=== PATIENT | female | born 1985 | race Caucasian/White ===

== ENCOUNTER 2020-10-17 12:30 | Outpatient (CLI) | payer OTHER, SELFPAY ==
--- NOTE | ~2020-10-17 | US_ITS ---
EXAMINATION: US OB <=14 wk fetus w TV EXAM DATE: 10/17/2020 13:11 INDICATION: Z32.00 - Encounter for test, result unknown DATES > SIZE. 1st trimester. TECHNIQUE: Pelvic obstetrical transabdominal sonogram was performed by a technologist. There are mu ltiple grayscale and Doppler images available for interpretation. There are no earlier studies of th is gestation for comparison. FINDINGS: Uterus measures 9.5 x 6.8 x 4.3 cm. There is intrauterine gestation sac identified with yol k sac and a pole measuring 5 mm in length corresponding to estimated age 6 weeks 1 day. However , no heart tones are identified at this time. No definite subchorionic hemorrhage identified. T he ovaries are morphologically normal. IMPRESSION: Intrauterine gestation sac, 5 mm pole without heart tones confirmed at this time. C annot confirm or exclude viable gestation. Consider 1 week follow-up pelvic sonogram. Reviewed, dictated and finalized at location B. HOOKER HAND IMPRESSION: Intrauterine gestation sac, 5 mm pole without heart tones con firmed at this time. Cannot confirm or exclude viable gestation. Consider 1 wee k follow-up pelvic sonogram.
== END 2020-10-17 12:31 | disposition home or self-care (01) ==
LOC: ANHIMG 12:36
PROVIDERS: PCP Internal Medicine; Visit Provider Student in an Organized Health Care Education/Training Program
DX: Z32.00 Encounter for pregnancy test, result unknown (principal); Z3A.00 Weeks of gestation of pregnancy not specified
CPT/HCPCS: 76801; 76817

== ENCOUNTER 2020-10-24 12:47 | Outpatient (CLI) | payer OTHER, SELFPAY ==
--- NOTE | ~2020-10-24 | US_ITS ---
EXAMINATION: US OB <=14 wk fetus w TV DATE: 10/24/2020 11:16 INDICATION: Maternal carrier for abnormality of heart rate or rhythm. First trimester. TECHNIQUE: Real-time transabdominal and transvaginal pelvic ultrasound was performed. COMPARISON: Ultrasound 10/17/2020 FINDINGS: TRANSABDOMINAL ULTRASOUND: The uterus measures 7.5 x 4.3 x 6.8 cm. TRANSVAGINAL ULTRASOUND: There is an intrauterine gestational sac. A yolk sac is identified. The fet al crown rump length measures 4 mm, which correlates with an estimated gestational age of 6 weeks and 0 day(s) (+/-) 4 day(s). heart motion is not identified by M-mode Doppler, which may be normal at this size. The right ovary measures 2.5 x 1.6 x 1.8 cm. The left ovary measures 3.3 x 1.6 x 2.8 c m. There is no free fluid in the pelvis. IMPRESSION: 1. Intrauterine gestation without increase in size from 10/17/20, which is not reassuring. Serial be ta-hCGs are recommended. Reviewed, dictated and finalized at location A. ING OPERATOR IMPRESSION: 1. Intrauterine gestation without increase in size from 10/17/20, which is not reassuring. Serial beta-hCGs are recommended.
[2020-10-24 13:44] LABS: Hematocrit 38.9 % (37.0-47.0); Hemoglobin 13.6 g/dL (12.0-15.0); Mean Corpuscular Hemoglobin 30.8 pg (26-34); Mean Corpuscular Volume 88.2 fl (80-100); Mean Platelet Volume 12.5 fl (7.4-10.4); Platelet Count Result 230 k/mm3 (150-375); Red Blood Count 4.41 M/mm3 (4.2-5.4); Red Cell Distribution Width 11.4 % (11.5-14.5); White Blood Count 6.8 K/mm3 (4.5-10.0)
== END 2020-10-24 12:48 | disposition home or self-care (01) ==
PROVIDERS: PCP Internal Medicine; Visit Provider Student in an Organized Health Care Education/Training Program
DX: O36.8390 Maternal care for abnormalities of the fetal heart rate or rhythm, unspecified trimester, not applicable or unspecified (principal); O02.1 Missed abortion; Z3A.00 Weeks of gestation of pregnancy not specified
CPT/HCPCS: 36415; 76801; 76817; 84702; 85027; 86900; 86901

== ENCOUNTER 2020-11-21 08:57 | Outpatient (CLI) | payer OTHER, SELFPAY | END 2020-11-21 08:58 | disposition home or self-care (01) | PROVIDERS: PCP Internal Medicine; Visit Provider Student in an Organized Health Care Education/Training Program | DX: O02.1 Missed abortion (principal); Z3A.00 Weeks of gestation of pregnancy not specified | CPT/HCPCS: 36415; 84702 ==

== ENCOUNTER 2020-12-14 15:30 | Outpatient (CLI) | payer OTHER, SELFPAY ==
[2020-12-14 16:23] LABS: Beta HCG Quantitative 303.29 mIU/ML
== END 2020-12-14 15:31 | disposition home or self-care (01) ==
LOC: ANHLAB 15:31
PROVIDERS: PCP Internal Medicine; Visit Provider Obstetrics & Gynecology
DX: O02.1 Missed abortion (principal); Z3A.00 Weeks of gestation of pregnancy not specified
CPT/HCPCS: 36415; 84702

== ENCOUNTER 2021-01-12 14:42 | Outpatient (CLI) | payer OTHER, SELFPAY ==
[2021-01-12 15:33] LABS: Beta HCG Quantitative 117.37 mIU/ML
== END 2021-01-12 14:43 | disposition home or self-care (01) ==
PROVIDERS: PCP Internal Medicine; Visit Provider Student in an Organized Health Care Education/Training Program
DX: O02.1 Missed abortion (principal); Z3A.00 Weeks of gestation of pregnancy not specified
CPT/HCPCS: 36415; 84702

== ENCOUNTER 2021-01-30 16:32 | Outpatient (CLI) | payer OTHER, SELFPAY ==
[2021-01-30 17:19] LABS: Beta HCG Quantitative 27.53 mIU/ML
== END 2021-01-30 16:33 | disposition home or self-care (01) ==
LOC: ANHLAB 16:35
PROVIDERS: PCP Internal Medicine; Visit Provider Student in an Organized Health Care Education/Training Program
DX: O02.1 Missed abortion (principal)
CPT/HCPCS: 36415; 84702

== ENCOUNTER 2021-01-30 16:52 | Emergency (ER) | payer OTHER, SELFPAY ==
[2021-01-30 17:05] VITALS: BP 111/76; PULSE 81; RESP 16; TEMP 36.1; O2SAT 100
--- NOTE | 2021-01-30 18:18 | ED.GENADULT ---
HPI - General Adult General Chief complaint: Vaginal Bleeding Stated complaint: vag bleeding, cramping Time Seen by Provider: 01/30/21 18:03 Source: patient Mode of arrival: ambulatory Limitations: no limitations History of Present Illness HPI narrative: Patient is a 35-year-old female who presents to emergency department for evaluation of pelvic pain past a large piece of tissue in the bathroom in the waiting room and upon coming to the ER room notes that her symptoms have completely resolved after passing the tissue. Patient notes that she had a miscarriage at the end of October. Patient is followed by Dr. Mccray. Patient has not had a recent ultrasound since her miscarriage was diagnosed. Patient notes she has been having intermittent bleeding since. Pain intensified today and resolved after passing the tissue. Patient is G1, P0 Related Data Allergies Allergy/AdvReac Type Severity Reaction Status Date / Time No Known Allergies Allergy Mild Verified 01/30/21 19:12 Review of Systems Review of Systems: All systems reviewed & are unremarkable except as noted in HPI and below PMFSH Social History Social History Gender identity (if verbalized by the patient): Female Exam Narrative: Exam Narrative: GENERAL: Well-appearing, well-nourished, and in no acute distress. HEAD: Normocephalic, atraumatic. EYES: PERRLA and EOMI. ENT: Nares clear, no rhinorrhea or epistaxis. Mucous membranes moist. CHEST: Clear to auscultation. No respiratory distress. No wheezes rales or rhonchi HEART: Regular rate and rhythm. No murmur heard. Normal peripheral pulses. ABDOMEN: Soft, nontender, nondistended EXTREMITIES: Normal range of motion. No edema. SKIN: Warm, dry, no rash. NEURO: No focal deficits. Alert and oriented x3. Cranial nerves II through XII grossly intact PSYCH: Normal mood and affect. Course Consultations Consultation #1: Discussed case with patient information coordinator on-call Dr. Grier return call for her colleague would like her to have CBC serum quant and blood type and if the pain is well controlled and patient is hemodynamically stable she can follow in clinic to be seen by her patient information coordinator tomorrow. Would also like the tissue to be sent off for lab to analyze Date: 01/30/21 Time: 18:30 Vital Signs Vital signs: Vital Signs Temperature 97.0 F L 03/09/21 17:05 Pulse Rate 81 01/30/21 17:05 Respiratory Rate 16 01/30/21 17:05 Blood Pressure 111/76 01/30/21 17:05 Pulse Oximetry 100 01/30/21 17:05 Temperature 97.0 F L 01/30/21 17:05 Pulse Rate 84 01/30/21 19:43 Respiratory Rate 18 01/30/21 19:43 Blood Pressure 112/75 01/30/21 19:43 Pulse Oximetry 100 01/30/21 19:43 Medical Decision Making MDM Narrative Medical decision making narrative: Patient in the room no distress will be discharged home patient states she had blood typing a did not require RhoGam when she initially was miscarrying and bleeding patient with stable vital signs hemodynamically stable ABCs and vital signs intact and stable felt appropriate for discharge home patient agrees to follow-up as instructed with her patient information coordinator tomorrow and feels comfortable with this plan bleeding is well controlled. tissue was sent to lab for analysis Vital Signs Vital Signs: Vital Signs Temperature 97.0 F L 01/30/21 17:05 Pulse Rate 81 01/30/21 17:05 Respiratory Rate 16 01/30/21 17:05 Blood Pressure 111/76 01/30/21 17:05 Pulse Oximetry 100 01/30/21 17:05 Temperature 97.0 F L 01/30/21 17:05 Pulse Rate 84 01/30/21 19:43 Respiratory Rate 18 01/30/21 19:43 Blood Pressure 112/75 01/30/21 19:43 Pulse Oximetry 100 01/30/21 19:43 Lab Data Result diagrams: 01/30/21 20:22 01/30/21 19:36 Labs: Lab Results 01/30/21 01/30/21 01/30/21 Range/Units 19:36 19:36 20:22 WBC 6.3 (4.5-10.0) K/mm3 RBC 4.59 (4.2-5.4) M/
[2021-01-30] MEDS: SODIUM CHLORIDE 0.9% IV 1,000 ML 999 ML IV CONT (19:10)
[2021-01-30 19:43] VITALS: BP 112/75; PULSE 84; RESP 18; O2SAT 100
[2021-01-30 19:54] LABS: Alanine Aminotransferase 15 U/L (4-35); Albumin Level 4.5 g/dL (3.5-5.1); Alkaline Phosphatase 59 U/L (38-126); Anion Gap 11 mmol/L (8-16); Aspartate Amino Transferase 22 U/L (14-36); Bilirubin,Total 0.4 mg/dL (0.2-1.3); Blood Urea Nitrogen 10 mg/dL (7-17); Calcium 9.4 mg/dL (8.4-10.2); Carbon Dioxide 23 mmol/L (22-30); Chloride 105 mmol/L (98-107); Estimated CRCL calculation 95 ml/min; Estimated Glomerular Filt Rate > 60; Glucose 94 mg/dL (65-105); Potassium 3.4 mmol/L (3.4-5.0); Sodium 139 mmol/L (137-145)
[2021-01-30 20:09] LABS: Beta HCG Quantitative 20.53 mIU/ML
[2021-01-30 20:30] LABS: Basophils Percent Auto 0.6 % (0.2-1.2); Eosinophils Absolute Auto 0.2 K/mm3 (0-0.3); Eosinophils Percent Auto 2.8 % (0-4.4); Hematocrit 38.9 % (37.0-47.0); Hemoglobin 13.1 g/dL (12.0-15.0); Immature Granulocyte Absolute 0.02 K/mm3 (0.00-0.031); Immature Granulocyte Percent A 0.3 % (0-0.5); Lymphocytes Absolute Auto 2.15 K/mm3 (0.9-3.2); Lymphocytes Percent Auto 33.9 % (18.3-44.2); Mean Corpuscular HGB Conc 33.7 g/dl (32-36); Mean Corpuscular Hemoglobin 28.5 pg (26-34); Mean Corpuscular Volume 84.7 fl (80-100); Mean Platelet Volume 9.4 fl (7.4-10.4); Monocytes Percent Auto 15.8 % (2.6-8.5); Neutrophils Percent Auto 46.6 % (45.5-73.1); Platelet Count Result 181 k/mm3 (150-375); Red Blood Count 4.59 M/mm3 (4.2-5.4); Red Cell Distribution Width 13.9 % (11.5-14.5); White Blood Count 6.3 K/mm3 (4.5-10.0)
== END 2021-01-30 21:07 | disposition home or self-care (01) ==
PROVIDERS: Emergency Medicine Emergency Medical Services; Emergency Provider Emergency Medicine; PCP Student in an Organized Health Care Education/Training Program
DX: N93.8 Other specified abnormal uterine and vaginal bleeding (principal)
CPT/HCPCS: 36415; 80053; 84702; 85025; 86850; 86900; 86901; 88305; 96360; 99283; J7030

== ENCOUNTER 2021-02-07 15:19 | Outpatient (CLI) | payer OTHER, SELFPAY ==
--- NOTE | ~2021-02-07 | US_ITS ---
US pelvic complete w TV DATE: 02/07/2021 15:56 INDICATION: Missed TECHNIQUE: Real-time imaging via transabdominal and transvaginal approaches COMPARISON: None FINDINGS: The uterus measures 7.6 cm height, 3.7 cm AP and 5.8 cm transverse dimension. The central e ndometrial echo complex measures up to 6.6 mm AP dimension. No ovarian mass or pelvic mass lesion. Vascular flow is demonstrated to both ovaries. No abnormal umesh e pelvic fluid collection. IMPRESSION: No significant abnormality Reviewed, dictated and finalized at Location A. Reviewed, dictated and finalized at location A. IMPRESSION: No significant abnormality
== END 2021-02-07 15:20 | disposition home or self-care (01) ==
PROVIDERS: PCP Internal Medicine; Visit Provider Student in an Organized Health Care Education/Training Program
DX: O02.1 Missed abortion (principal)
CPT/HCPCS: 76830; 76856

== ENCOUNTER 2021-11-28 18:46 | Outpatient (NON) | payer OTHER, SELFPAY ==
[2021-11-28 18:56] VITALS: BMI 41.1
[2021-11-28 21:11] LABS: Total Volume 24 Hour Urine 3500 ml
[2021-11-28 21:12] LABS: Specific Gravity Ur 1.011
[2021-11-28 21:22] LABS: Creatinine Urine 44.2 mg/dL; Total Protein Urine Random 13 mg/dL; Ur Ttl Prot Creatinine Ratio 0.29 mg/mg (0-0.20)
[2021-11-28 21:40] LABS: Total Protein Urine 24 Hr 490 mg/24hr (28-141); Total Protein Urine Random 14 mg/dL
== END 2021-11-28 18:47 | disposition home or self-care (01) ==
LOC: ANHOBOP 18:51
PROVIDERS: PCP Internal Medicine; Visit Provider Student in an Organized Health Care Education/Training Program
DX: Z34.90 Encounter for supervision of normal pregnancy, unspecified, unspecified trimester (principal); Z3A.00 Weeks of gestation of pregnancy not specified
CPT/HCPCS: 81050; 82570; 84156

== ENCOUNTER 2021-12-10 14:20 | Outpatient (RCR) | payer OTHER, SELFPAY ==
[2021-11-20 15:51] VITALS: BP 139/92; PULSE 90
[2021-11-20 16:24] LABS: Basophils Percent Auto 0.4 % (0.2-1.2); Eosinophils Percent Auto 0.5 % (0-4.4); Hematocrit 34.8 % (37.0-47.0); Hemoglobin 11.9 g/dL (12.0-15.0); Immature Granulocyte Absolute 0.05 K/mm3 (0.00-0.031); Immature Granulocyte Percent A 0.6 % (0-0.5); Lymphocytes Absolute Auto 1.91 K/mm3 (0.9-3.2); Lymphocytes Percent Auto 23.5 % (18.3-44.2); Mean Corpuscular HGB Conc 34.2 g/dl (32-36); Mean Corpuscular Hemoglobin 30.9 pg (26-34); Mean Corpuscular Volume 90.4 fl (80-100); Mean Platelet Volume 12.8 fl (7.4-10.4); Monocytes Absolute Auto 0.5 K/mm3 (0.1-0.6); Monocytes Percent Auto 6.1 % (2.6-8.5); Neutrophils Absolute Auto 5.6 K/mm3 (1.3-6.7); Neutrophils Percent Auto 68.9 % (45.5-73.1); Platelet Count Result 135 k/mm3 (150-375); Red Blood Count 3.85 M/mm3 (4.2-5.4); Red Cell Distribution Width 12.9 % (11.5-14.5); White Blood Count 8.1 K/mm3 (4.5-10.0)
[2021-11-20 16:26] LABS: Add Urine Microscopic? NO; Appearance Urine Clear (Clear); Bilirubin Urine Negative (Negative); Blood Urine Negative (Negative); Color Urine Yellow (Yellow); Glucose Urine UA Negative (Negative); Ketones Urine Negative (Negative); Leukocyte Esterase Ur Negative LEU/UL (NEGATIVE); Nitrate Urine Negative (Negative); Protein Urine Negative (Negative); Specific Grav Ur 1.005 (1.001-1.035); Urobilinogen Urine Negative mg/dL (<2.0)
--- NOTE | 2021-11-20 16:35 | PC.NURSE ---
1604- BP's reviewed. Orders received for [facility] labs, may discharge patient to home, will call with results miryam.
[2021-11-20 16:36] LABS: Alanine Aminotransferase 16 U/L (4-35); Albumin Level 3.1 g/dL (3.5-5.1); Alkaline Phosphatase 156 U/L (38-126); Anion Gap 7 mmol/L (8-16); Aspartate Amino Transferase 25 U/L (14-36); Bilirubin,Total 0.5 mg/dL (0.2-1.3); Blood Urea Nitrogen 5 mg/dL (7-17); Calcium 9.1 mg/dL (8.4-10.2); Carbon Dioxide 20 mmol/L (22-30); Chloride 107 mmol/L (98-107); Estimated Glomerular Filt Rate > 60; Glucose 84 mg/dL (65-110); Potassium 3.7 mmol/L (3.4-5.0); Sodium 134 mmol/L (137-145); Uric Acid 7.7 mg/dL (2.5-7.5)
[2021-11-20 20:17] LABS: Creatinine Urine 79.9 mg/dL
[2021-11-20 21:17] LABS: Total Protein Urine Random 10 mg/dL; Ur Ttl Prot Creatinine Ratio 0.13 mg/mg (0-0.20)
[2021-11-27 14:40] LABS: Hematocrit 34.4 % (37.0-47.0); Hemoglobin 12.1 g/dL (12.0-15.0); Mean Corpuscular HGB Conc 35.2 g/dl (32-36); Mean Corpuscular Hemoglobin 31.4 pg (26-34); Mean Corpuscular Volume 89.4 fl (80-100); Mean Platelet Volume 12.8 fl (7.4-10.4); Platelet Count Result 127 k/mm3 (150-375); Red Blood Count 3.85 M/mm3 (4.2-5.4); White Blood Count 7.7 K/mm3 (4.5-10.0)
[2021-11-27 14:53] LABS: Alanine Aminotransferase 14 U/L (4-35); Albumin Level 3.2 g/dL (3.5-5.1); Alkaline Phosphatase 176 U/L (38-126); Anion Gap 7 mmol/L (8-16); Aspartate Amino Transferase 23 U/L (14-36); Bilirubin,Total 0.5 mg/dL (0.2-1.3); Blood Urea Nitrogen 4 mg/dL (7-17); Carbon Dioxide 20 mmol/L (22-30); Chloride 106 mmol/L (98-107); Estimated Glomerular Filt Rate > 60; Glucose 75 mg/dL (65-110); Potassium 3.6 mmol/L (3.4-5.0); Sodium 133 mmol/L (137-145)
[2021-11-27 15:31] VITALS: BP 129/87; PULSE 82
== END 2022-01-07 08:36 | disposition home or self-care (01) ==
LOC: ANHOBOP 14:20
PROVIDERS: PCP Internal Medicine; Visit Provider Student in an Organized Health Care Education/Training Program
DX: O30.003 Twin pregnancy, unspecified number of placenta and unspecified number of amniotic sacs, third trimester (principal); Z3A.34 34 weeks gestation of pregnancy; Z3A.35 35 weeks gestation of pregnancy
CPT/HCPCS: 36415; 59025; 80053; 81003; 82570; 84156; 84550; 85025; 85027; 87086; 87088; J2175; J2274

== ENCOUNTER 2021-12-10 14:20 | Inpatient (IN) | payer OTHER, SELFPAY ==
[2021-12-10] VITALS (23 sets, daily range): BP systolic 120–162; BP diastolic 66–114; PULSE 63–90; TEMP 36.8–36.9; BMI 42.5
[2021-12-10 17:03] LABS: Basophils Percent Auto 0.4 % (0.2-1.2); Eosinophils Absolute Auto 0.1 K/mm3 (0-0.3); Eosinophils Percent Auto 0.6 % (0-4.4); Hematocrit 35.7 % (37.0-47.0); Hemoglobin 12.5 g/dL (12.0-15.0); Immature Granulocyte Absolute 0.05 K/mm3 (0.00-0.031); Immature Granulocyte Percent A 0.6 % (0-0.5); Immature Platelet Fraction Pct 22.9 % (0.9-11.2); Lymphocytes Absolute Auto 1.79 K/mm3 (0.9-3.2); Lymphocytes Percent Auto 22.8 % (18.3-44.2); Mean Corpuscular Hemoglobin 30.7 pg (26-34); Mean Corpuscular Volume 87.7 fl (80-100); Mean Platelet Volume 13.5 fl (7.4-10.4); Monocytes Absolute Auto 0.4 K/mm3 (0.1-0.6); Monocytes Percent Auto 5.5 % (2.6-8.5); Neutrophils Absolute Auto 5.5 K/mm3 (1.3-6.7); Neutrophils Percent Auto 70.1 % (45.5-73.1); Platelet Count Result 153 k/mm3 (150-375); Red Blood Count 4.07 M/mm3 (4.2-5.4); Red Cell Distribution Width 12.7 % (11.5-14.5); White Blood Count 7.8 K/mm3 (4.5-10.0)
[2021-12-10 17:06] LABS: Alanine Aminotransferase 14 U/L (4-35); Albumin Level 3.3 g/dL (3.5-5.1); Alkaline Phosphatase 219 U/L (38-126); Anion Gap 9 mmol/L (8-16); Aspartate Amino Transferase 24 U/L (14-36); Bilirubin,Total 0.5 mg/dL (0.2-1.3); Blood Urea Nitrogen 5 mg/dL (7-17); Carbon Dioxide 19 mmol/L (22-30); Chloride 107 mmol/L (98-107); Estimated Glomerular Filt Rate > 60; Glucose 79 mg/dL (65-110); Potassium 3.8 mmol/L (3.4-5.0); Sodium 135 mmol/L (137-145); Uric Acid 7.2 mg/dL (2.5-7.5)
[2021-12-10] MEDS: DINOPROSTONE 10 MG VAG INSERT VAGINAL (17:38)
--- NOTE | 2021-12-10 17:39 | WPDANESEPP ---
Anes - Eval Pre Procedure Procedure: labor epidural Date/Time: 12/10/21 17:39 Preop Diagnosis: pain during labor Pre Op Diagnosis: IOL Patient Data Age: 36 Gender: F Height: Weight: Last Vital Signs Pulse 79 12/10/21 17:16 BP 150/93 H 12/10/21 17:16 Allergies Allergy/AdvReac Type Severity Reaction Status Date / Time No Known Allergies Allergy Verified 12/10/21 14:48 Home Medications Medication Instructions Recorded Confirmed Type vits 75-iron 28 mg-folic pkg PO 11/04/19 History acid 800 mcg-omega-3 oral combo pack aspirin 81 mg tablet,delayed 81 mg PO DAILY 08/02/21 History release sertraline 50 mg PO DAILY 12/10/21 12/10/21 History Laboratory Tests 12/10/21 12/10/21 12/10/21 16:46 16:46 16:46 WBC 7.8 K/mm3 K/mm3 (4.5-10.0) RBC 4.07 M/mm3 L M/mm3 (4.2-5.4) Hgb 12.5 g/dL g/dL (12.0-15.0) Hct 35.7 % L % (37.0-47.0) MCV 87.7 fl fl (80-100) MCH 30.7 pg pg (26-34) MCHC 35.0 g/dl g/dl (32-36) RDW 12.7 % % (11.5-14.5) Plt Count 153 k/mm3 k/mm3 (150-375) MPV 13.5 fl H fl (7.4-10.4) Immature Gran % (Auto) 0.6 % H % (0-0.5) Neut % (Auto) 70.1 % % (45.5-73.1) Lymph % (Auto) 22.8 % % (18.3-44.2) [place] % (Auto) 5.5 % % (2.6-8.5) Eos % (Auto) 0.6 % % (0-4.4) Baso % (Auto) 0.4 % % (0.2-1.2) Lymph # (Auto) 1.79 K/mm3 K/mm3 (0.9-3.2) [place] # (Auto) 0.4 K/mm3 K/mm3 (0.1-0.6) Eos # (Auto) 0.1 K/mm3 K/mm3 (0-0.3) Baso # (Auto) 0.0 K/mm3 K/mm3 (0.0-0.1) Abs Immat Gran (auto) 0.05 K/mm3 H K/mm3 (0.00-0.031) Absolute Neuts (auto) 5.5 K/mm3 K/mm3 (1.3-6.7) Absolute Nucleated RBC 0.0 K/mm3 K/mm3 (0.0-0.012) Nucleated RBC % 0.0 % % (0.0-0.2) % Immature Plt Fraction 22.9 % H % (0.9-11.2) Sodium 135 mmol/L L mmol/L (137-145) Potassium 3.8 mmol/L mmol/L (3.4-5.0) Chloride 107 mmol/L mmol/L (98-107) Carbon Dioxide 19 mmol/L L mmol/L (22-30) Anion Gap 9 mmol/L mmol/L (8-16) BUN 5 mg/dL L mg/dL (7-17) Creatinine 0.70 mg/dL mg/dL (0.7-1.0) Estim Creat Clear Calc Not Reportable Estimated GFR > 60 (59 - ) Glucose 79 mg/dL mg/dL (65-110) Uric Acid 7.2 mg/dL mg/dL (2.5-7.5) Calcium 9.0 mg/dL mg/dL (8.4-10.2) Total Bilirubin 0.5 mg/dL mg/dL (0.2-1.3) AST 24 U/L U/L (14-36) ALT 14 U/L U/L (4-35) Alkaline Phosphatase 219 U/L H U/L (38-126) Total Protein 6.0 g/dL L g/dL (6.3-8.2) Albumin 3.3 g/dL L g/dL (3.5-5.1) RPR Pending Patient hx anesthesia problems: none Family hx anesthesia problems: none Results Review: All pre-operative results and documents have been reviewed as part of the pre-operative evaluation. [facility] Past Medical History Medical History Anxiety HTN (hypertension) Missed x1 Surgical History Surgical History H/O kidney removal Left Family History Family History (Updated 12/10/21 @ 14:49 by Bela Watkins RN) Sibling Down's syndrome Social History Social History Smoking status: Never smoker Second hand tobacco smoke exposure: No Alcohol intake: current Substance use: never Gender identity (if verbalized by the patient): Female Spiritual care concerns: No Exam Day of Procedure 12/10/21 17:39
--- NOTE | 2021-12-10 17:45 | LDADM ---
This patient, Aria Hampton, was admitted to Labor/Delivery/Recovery 102 on 12/10/21 at 14:20. Plans for labor, pain management and were discussed with patient. Patient/family oriented to hospital policies and general routines including ID bracelet, bed and alarms, visiting hours, pain management, procedures, bathroom and other care routines, personal items, smoking policy, room service/diet and guest tray routines, infant security routines, and visiting hours. Patient/Family are encouraged to report perceived risks to care and to ask questions if they do not understand what they are told or what they should do. See OBIX for further documentation.
[2021-12-10] MEDS: LACTATED RINGERS 1,000 ML 75 ML IV CONT (20:49)
[2021-12-10] MEDS: MAGNESIUM SULF 4 GM/WATER100ML 4 GM/100 ML BAG IVPB (20:50)
[2021-12-10] MEDS: MAGNESIUM SULF 20GM/WATER500ML 500 ML 50 MG IV CONT (21:35)
[2021-12-11] VITALS (292 sets, daily range): BP systolic 69–160; BP diastolic 32–106; PULSE 45–185; RESP 16–18; TEMP 36.2–38; O2SAT 84–100
--- NOTE | 2021-12-11 | ECHO_ITS ---
Patient Info Name: Aria Hampton Age: 36 years : 1985 Gender: Female Ht: 64 in Wt: 245 lbs BSA: 2.30 m2 HR: 74 bpm BP: 101 / 50 mmHg Heart Rhythm: Sinus Rhythm Technical Quality: Fair Exam Date: 12/11/2021 6:07 PM Exam Location: [facility] Patient Status: Inpatient Admit Date: 12/10/2021 Staff Ordering Physician: Bong Lorenzo MD Residential Sales Consultant: Nancy Valentin RDCS Attending Provider: Norma Mccray MD Referring Physician: Maura GHOSH; Exam Type: CA echo doppler color flow Study Info Indications - pvc's, arrhyhmia Complete two-dimensional, color flow and Doppler transthoracic echocardiogram is performed. Summary 1. Complete two-dimensional, color flow and Doppler transthoracic echocardiogram is performed. 2. Left ventricular chamber dimension is mildly enlarged. 3. Left ventricular systolic function is normal, estimated at 65-70%. 4. There is mildly increased left ventricular wall thickness. 5. The left ventricular diastolic function is normal. Left Ventricle Left ventricular chamber dimension is mildly enlarged. Left ventricular systolic function is normal, estimated at 65-70%. There is mildly increased left ventricular wall thickness. The left ventricular diastolic function is normal. Right Ventricle Right ventricular chamber dimension is normal. Right ventricular systolic function is normal. Left Atria Left atrial chamber dimension is normal. Right Atria Right atrial chamber dimension is normal. Aortic Valve The aortic valve is trileaflet. There is no aortic valve stenosis. There is trace aortic valve regurgitation. Pulmonic Valve The pulmonic valve is normal. There is no pulmonic valve stenosis. There is trace pulmonic regurgitation. Mitral Valve The mitral valve has normal leaflets. There is no mitral valve stenosis. There is trace mitral valve regurgitation. Tricuspid Valve The tricuspid valve leaflets are normal. There is no significant tricuspid valve stenosis. There is trace tricuspid valve regurgitation. Pericardium/Pleural The pericardium appears normal. There is small pericardial effusion. Aorta The aortic root size at the sinus of Valsalva is normal. Left Ventricular Outflow Tract Name Value Normal LVOT 2D LVOT Diameter 2.0 cm LVOT Doppler LVOT Peak Gradient 3 mmHg LVOT Mean Gradient 1 mmHg LVOT VTI 15 cm LVOT VTI/AV VTI Ratio 0.6 LVOT Stroke Volume 47 ml LVOT CO 3.8 l/min LVOT CI 1.6 l/min/m2 Pulmonic Valve Name Value Normal RVOT Doppler RVOT Peak Gradient 5 mmHg PV Doppler
[2021-12-11] MEDS: OXYTOCIN 30 UNITS/NS 500 ML 30 UNITS/500 ML BAG IV CONT (06:33)
[2021-12-11 07:28] LABS: Rapid Plasma Reagin Non-Reactive (NonReactive)
[2021-12-11] MEDS: MAGNESIUM SULF 20GM/WATER500ML 500 ML 50 MG IV CONT (07:38)
[2021-12-11] MEDS: ONDANSETRON INJ 4 MG/2 ML VIAL IV PUSH (07:58)
[2021-12-11] MEDS: LACTATED RINGERS 1,000 ML 125 ML IV CONT (08:49)
--- NOTE | 2021-12-11 10:01 | PM.IMHP ---
H&P: HPI History of Present Illness Date/Time: 12/11/21 10:01 Patient is a LMP 03/26/21 currently 37w1d with dichorionic diamniotic twin gestation. SANTOSH 12/31/21. Patient is dated by LMP consistent with ultrasound on 05/15/21 at 7w gestation. Patient was recently diagnosed with preeclampsia and presented to L&D yesterday on 12/10/21 for routine surveillance. BP was slightly higher than usual and variable decelerations were noted on NST. Decision was made to proceed with IOL. Patient reported feeling a bit anxious, however, denied any headache, chest pain, SOB, N/V, or visual disturbances. Also denied any vaginal bleeding, leakage of fluid, or contractions. Reported good movement. Chief Complaint: IUP at 37w1d Dichorionic diamniotic twin gestation Preeclampsia Review of Systems Review of Systems: All systems reviewed & are unremarkable except as noted in HPI and below Constitutional: Constitutional: Reports as per HPI, Reports no additional constitutional complaints, Denies chills, Denies fever(s), Denies headache(s) and Denies night sweats Eyes: Eyes: Reports as per HPI and Reports no additional eye complaints ENT: Reports system reviewed and no additional complaints, except as documented, Reports as per HPI, Reports Normal hearing present and Denies headache(s) Cardiovascular: Cardiovascular: Reports as per HPI, Reports no additional cardiovascular complaints, Denies chest pain and Denies dyspnea Respiratory: Respiratory: Reports as per HPI, Reports no additional respiratory complaints, Denies cough and Denies dyspnea Gastrointestinal: Gastrointestinal: Reports as per HPI, Reports no additional gastrointestinal complaints, Denies abdominal pain, Denies change in bowel habits, Denies change in stool character, Denies nausea and Denies vomiting Genitourinary: Genitourinary: Reports no additional female genitourinary complaints, Reports as per HPI, Denies abnormal vaginal bleeding, Denies genital lesions, Denies hot flashes, Denies dyspareunia, Denies pelvic pain, Denies sexual dysfunction, Denies urinary incontinence, Denies vaginal discharge, Denies vaginal dryness and Denies vaginal odor Musculoskeletal: Musculoskeletal: Reports no additional musculoskeletal complaints and Reports as per HPI Integumentary/Breasts: Skin/Breast: Reports system reviewed and no additional complaints, except as docu, Reports as per HPI, Denies breast pain and Denies nipple discharge Neurologic: Reports system reviewed and no additional complaints, except as documented, Reports as per HPI, Reports Normal hearing present and Denies headache(s) Psychiatric: Psychiatric: Reports no additional psychiatric complaints, Reports as per HPI, Denies anxiety and Denies depression Endocrine: Endocrine: Reports no additional endocrine complaints and Reports as per HPI Hematologic/Lymphatic: Hematologic/Lymphatic: Reports no additional hematologic/lymphatic complaints and Reports as per HPI Allergic/Immunologic: Allergic/Immunologic: Reports no additional allergic/immunologic complaints and Reports as per HPI PMFSH Past Medical History Medical History Anxiety HTN (hypertension) Missed x1 Surgical History Surgical History H/O kidney removal Left Family History Family History Sibling Down's syndrome Social History Social History Smoking status: Never smoker Second hand tobacco smoke exposure: No Alcohol intake: current Substance use: never Gender identity (if verbalized by the patient): Female Spiritual care concerns: No Meds Home Medications and Allergies Home Medications Medication Instructions Recorded Confirmed Type vits 75-iron 28 mg-folic pkg PO 11/04/19 History acid 800 mcg-omega-3 oral combo pa
[2021-12-11] MEDS: PHENYLEPHRINE 1,000 MCG/10 ML SYRINGE 100 MCG IV PUSH ×2 (10:12→10:28)
--- NOTE | 2021-12-11 14:50 | ECG_ITS ---
Measurements Intervals [place] Rate: 92 P: 36 OH: 145 QRS: 4 QRSD: 113 T: 46 QT: 388 QTc: 481 Interpretive Statements SINUS RHYTHM FREQUENT VENTRICULAR PREMATURE COMPLEXES CONSIDER INFERIOR INFARCT, AGE INDETERMINATE BORDERLINE ST ABNORMALITY- HIGH LATERAL LEADS ABNORMAL ECG Electronically Signed On 12-11-2021 18:14:45 PRESTIDIGITATOR by Michael Rosas D.O.
[2021-12-11] MEDS: LACTATED RINGERS 1,000 ML 75 ML IV CONT ×2 (15:00→23:54)
--- NOTE | 2021-12-11 16:20 | WPDHPUPDATE1 ---
History and Physical Update Update Date/Time: 12/11/21 16:20 History and Physical has been reviewed, including an updated exam of the patient. There are NO changes in the patient's condition. Risks, benefits, and alternatives have been discussed and questions answered. Patient agrees to proceed with procedure.
[2021-12-11 16:55] LABS: Magnesium 6.5 mg/dL (1.6-2.3)
--- NOTE | 2021-12-11 17:14 | PM.OBPNVD ---
OB - PN: Subj Subjective Date/time seen: 12/11/21 17:14 At approx. 1:45 p.m., abnormal heart rhythm noted on monitoring. On physical exam, arrhythmia heard, unclear etiology. In general, patient asymptomatic. Reports feeling flushed, but otherwise, denies any chest pain or SOB. Stat magnesium level and EKG ordered. Magnesium unable to be run by lab and had to be redrawn. Level 6.5. Will decrease to 1g/hr. CMP also ordered. Cardiology consult requested. Spoke with Dr. Lorenzo. States that EKG showed PVCs. He recommended reviewing CMP as well as ordering TSH/T4. At this time, he did not feel as though EKG changes are caused by magnesium and may be due more to labor process. No acute cardiology interventions necessary at this time. Plan is to continue current care and management and cardiology will evaluate patient tomorrow and possibly obtain echo. OB - PN: Obj Data Labs CBC & Chem 7: 12/10/21 16:46 12/10/21 16:46 Labs: Laboratory Results - last 24 hr 12/10/21 12/10/21 12/11/21 16:46 16:46 16:37 Magnesium 6.5 H RPR Non-reactive Blood Type A Positive Antibody Screen Negative OB - PN A/P Time Spent With Patient Time: Total time spent is greater than 50% in coordination of care (as documented) at patient's floor/unit and/or counseling patient:
--- NOTE | 2021-12-11 18:03 | PM.CNCAR ---
Assessment and Plan Assessment and plan (1) Arrhythmia: Code(s): I49.9 - Cardiac arrhythmia, unspecified Status: Acute Assessment and Plan: Her arrhythmia is noted to be PVCs. No other complex arrhythmias noted. I did discuss this with Dr. Mccray. Comprehensive metabolic panel to be ordered. TSH and free T4 level also is ordered. Will check a 2D echocardiogram Doppler to ensure there is no peripartum cardiomyopathy or other structural abnormalities with her heart. PVCs are probably benign but workup to be completed as above (2) Preeclampsia: Code(s): O14.90 - Unspecified pre-eclampsia, unspecified trimester Status: Acute Assessment and Plan: On a magnesium drip. Currently hypotensive. DENTAL ASSISTING INSTRUCTOR present and reduced magnesium drip (3) Active labor: Status: Acute Assessment and Plan: Per Dr. Mccray History of Present Illness History of Present Illness Consult date/time: 12/11/21 18:03 Requesting physician: Norma Mccray MD Consult reason: Other (Arrhythmia) Reason For Visit: IOL Narrative: Reason consultation: Arrhythmia Date of service 12/11/2021 Requesting provider: Dr. Mccray History: Patient is a 36-year-old female who is currently with twins. She is in active labor. While on monitor, it was noted that she was having ?arrhythmia?. She is on magnesium drip because of preeclampsia. EKG was performed showing PVCs. No other acute findings. I was asked to see to give an opinion recommendation regarding her arrhythmia. Patient has had some edema recently during as well as some dyspnea with exertion but otherwise has been feeling fine and without complaint. Prior to she also had no cardiac history including no chest pain, shortness of breath, syncope, presyncope, paroxysmal nocturnal dyspnea, orthopnea, edema or palpitations. Review of Systems Review of Systems: All systems reviewed & are unremarkable except as noted in HPI and below Constitutional: Constitutional: Reports fatigue Eyes: Eyes: Denies blurry vision ENT: Reports Normal hearing present Cardiovascular: Cardiovascular: Denies chest pain and Denies palpitations Respiratory: Respiratory: Reports dyspnea on exertion Gastrointestinal: Gastrointestinal: Denies abdominal pain Genitourinary: Genitourinary: Denies flank pain Musculoskeletal: Musculoskeletal: Denies neck pain Integumentary/Breasts: Skin/Breast: Denies dry skin Neurologic: Denies headache(s) Psychiatric: Psychiatric: Denies anxiety Endocrine: Endocrine: Denies excessive sweating Hematologic/Lymphatic: Hematologic/Lymphatic: Denies easy bleeding Allergic/Immunologic: Allergic/Immunologic: Denies GI upset with certain foods PMFSH Past Medical History Medical History Anxiety HTN (hypertension) Missed x1 Surgical History Surgical History H/O kidney removal Left Family History Family History Sibling Down's syndrome Social History Social History Smoking status: Never smoker Second hand tobacco smoke exposure: No Alcohol intake: current Substance use: never Gender identity (if verbalized by the patient): Female Spiritual care concerns: No Meds Home Medications and Allergies Home Medications Medication Instructions Recorded Confirmed Type vits 75-iron 28 mg-folic pkg PO 11/04/19 History acid 800 mcg-omega-3 oral combo pack aspirin 81 mg tablet,delayed 81 mg PO DAILY 08/02/21 History release sertraline 50 mg PO DAILY 12/10/21 12/10/21 History Allergies Allergy/AdvReac Type Severity Reaction Status Date / Time No Known Allergies Allergy Verified 12/10/21 14:48 Vital Signs Vital Signs - 24 hr 12/10/21
[2021-12-11 18:13] LABS: Alanine Aminotransferase 15 U/L (4-35); Albumin Level 3.3 g/dL (3.5-5.1); Alkaline Phosphatase 249 U/L (38-126); Anion Gap 11 mmol/L (8-16); Aspartate Amino Transferase 27 U/L (14-36); Bilirubin,Total 0.6 mg/dL (0.2-1.3); Blood Urea Nitrogen 4 mg/dL (7-17); Calcium 8.4 mg/dL (8.4-10.2); Carbon Dioxide 18 mmol/L (22-30); Chloride 100 mmol/L (98-107); Estimated CRCL calculation 94 ml/min; Estimated Glomerular Filt Rate > 60; Glucose 95 mg/dL (65-110); Potassium 3.7 mmol/L (3.4-5.0); Sodium 129 mmol/L (137-145)
[2021-12-11 21:44] LABS: Free T4 Free Thyroxine 0.88 ng/mL (0.78-2.19)
[2021-12-11 23:09] LABS: Magnesium 5.9 mg/dL (1.6-2.3)
[2021-12-12] VITALS (74 sets, daily range): BP systolic 80–161; BP diastolic 24–116; PULSE 70–124; RESP 15–18; TEMP 36.6–37.2; O2SAT 94–100
--- NOTE | 2021-12-12 01:27 | PM.OBPNVD ---
OB - PN: Subj Subjective Date/time seen: 12/12/21 01:27 Patient has been observed for several hours during which time she has made no further cervical change despite an increase in pitocin. Decision made to proceed with section for arrest of dilation. Risks and benefits discussed. All questions and concerns addressed. Patient understands and agrees with plan. OB - PN: Obj Data Labs CBC & Chem 7: 12/10/21 16:46 12/11/21 16:37 Labs: Laboratory Results - last 24 hr 12/10/21 12/10/21 12/11/21 16:46 16:46 16:37 Sodium Potassium Chloride Carbon Dioxide Anion Gap BUN Creatinine Estim Creat Clear Calc Estimated GFR Glucose Calcium Magnesium 6.5 H Total Bilirubin AST ALT Alkaline Phosphatase Total Protein Albumin TSH Free T4 0.88 RPR Non-reactive 12/11/21 12/11/21 12/11/21 16:37 16:46 22:47 Sodium 129 L Potassium 3.7 Chloride 100 Carbon Dioxide 18 L Anion Gap 11 BUN 4 L Creatinine 0.90 Estim Creat Clear Calc 94 Estimated GFR > 60 Glucose 95 Calcium 8.4 Magnesium 5.9 H Total Bilirubin 0.6 AST 27 ALT 15 Alkaline Phosphatase 249 H Total Protein 6.0 L Albumin 3.3 L TSH 2.170 Free T4 RPR OB - PN A/P Time Spent With Patient Time: Total time spent is greater than 50% in coordination of care (as documented) at patient's floor/unit and/or counseling patient:
--- NOTE | 2021-12-12 01:37 | PM.OBPRVD ---
OB - Delivery Note Procedure Delivery date: 12/12/21 Procedure: Procedures Operation Date: 12/12/21 01:45 <No data on this case meets the specified criteria> events: Pre-Eclampsia and Labor Induction Intrapartal events: Mild Preeclampsia and Failure to Progress in Labor Induction method: per cervidil protocol Delivery augmentation: rupture of membranes and pitocin Delivery monitor: external FHT, external uterine and internal uterine Route of delivery: Specimen: Yes (placenta and cord, cord blood, and cord gases) Quantitative Blood Loss (ml): 500 Anesthesia type: Epidural Disposition: PACU Complications: No immediate complications Baby Date of : 12/12/21 Time of : 02:10 Weeks of gestation at delivery: 37 (37.2) gender: Female Weight (pounds): 6 Weight (ounces): 1 presentation: vertex Placenta delivery description: Spontaneous cord vessel description: 3 Vessels score one minute: 7 score five minutes: 8 Twins 1: Date of : 12/12/21 Time of : 02:12 Weeks of gestation at delivery: 37 (37.2) Infant gender: Female Weight (pounds): 5 Weight (ounces): 6 presentation: vertex cord vessel description: Nuchal Cord (x1) score one minute: 7 score five minutes: 8 AMG Delivery Billing Delivery Delivery: Delivery Charge
--- NOTE | 2021-12-12 01:37 | W.PM.PROC2 ---
Procedure Note - Detailed Date of Procedure 12/12/21 Pre-op Diagnosis IUP at 37w2d gestation Dichorionic diamniotic twin gestation Preeclampsia Arrest of dilation Post-op Diagnosis same Procedure Performed Primary low transverse section via Pfannenstiel Surgeon Norma Mccray MD Operating Room Manager Florencia Fulton Anesthesia epidural Findings Twin A live born female infant, apgars 7 and 8, weighing 6 lbs. 1 oz.; Twin B live born female infant, apgars 7 and 8, weighing 5 lbs. 6 oz.; normal appearing uterus, ovaries, and fallopian tubes bilaterally Description of Procedure The patient was taken to the operating room, where she was transferred to the operating room table. The patient was placed in dorsal supine position with a leftward tilt. She was prepped and draped in the usual sterile fashion. Epidural anesthesia that was previously placed was tested and found to be adequate. A Pfannenstiel skin incision was made with a scalpel and carried through to underlying layer of fascia with the Bovie. The fascia was incised in the midline and the incision was extended laterally with the use of forceps and Camacho scissors. The inferior aspect of the fascial incision was grasped with Brian clamps, elevated, and the underlying rectus muscle were dissected off with Camacho scissors. Attention was then turned to the superior aspect of the fascial incision, which in a similar manner, was grasped with Brian clamps, elevated, and the underlying rectus muscles were also dissected off with Camacho scissors. The rectus muscles were in the midline and the peritoneal cavity was entered bluntly. This incision was extended superiorly and inferiorly with good visualization of the bladder and care was taken to avoid blood vessels. A bladder blade was inserted. The vesicouterine peritoneum was identified and incised sharply with Metzenbaum scissors. This incision was extended laterally with Metzenbaum scissors and a bladder flap was created digitally. The bladder blade was replaced. A low-transverse uterine incision was made with a scalpel. This incision was extended laterally with bandage scissors. Amniotomy was performed. Clear amniotic fluid was noted. Twin A's head was grasped and gently guided to the level of the uterine incision. The 's head was delivered easily and atraumatically without difficulty followed by the neck, shoulders, and rest of body with gentle fundal pressure. The infant's nose and mouth were suctioned bulb suction. The was crying spontaneously. The cord was clamped with curved Taylor clamps and cut and the infant was handed off to awaiting nursing staff. A segment of cord was collected for cord gases. Twin B was palpated. Amniotomy was performed. Clear fluid was noted. Twin B's head was grasped and gently guided to the level of the uterine incision. The infant's head was delivered easily and atraumatically without difficulty followed by the neck, shoulders, and rest of body with gentle fundal pressure. A nuchal cord x 1 was noted and easily reduced. The infant's nose and mouth were suctioned bulb suction. The infant was crying spontaneously. The cord was clamped with straight Brian clamps and cut and the was handed off to awaiting nursing staff. A segment of cord was collected for cord gases. Cord blood was collected for both Twin A and B. The placenta was then delivered manually with gentle uterine massage. Uterus was exteriorized and cleared of all clots and debris. Uterus was a bit boggy. Hemabate was administered per anesthesia. Additional pitocin was also added to IV fluid. Uterus became firm. The uterine incision was reapproximated with 0 Vicryl in a running, locked fashion. A second imbricating layer using 0 Monocryl performed. Excellent hemostasis was noted. On inspection, the uterus, ovaries, and fallopian tubes appeared to be normal bilaterally. The uterus was replaced into the abdominal cavity. The gutters were cleared of all clots and debris. T
[2021-12-12] MEDS: MORPHINE SULFATE INJ (*CRX) 10 MG/ML AMP 2 MG IV PUSH ×2 (04:02→04:18)
[2021-12-12] MEDS: LACTATED RINGERS 1,000 ML 75 ML IV CONT (04:19)
[2021-12-12] MEDS: OXYTOCIN 30 UNITS/NS 500 ML 30 UNITS/500 ML BAG 125 UNITS IV CONT (04:20)
[2021-12-12] MEDS: MAGNESIUM SULF 20GM/WATER500ML 500 ML 25 MG IV CONT (04:21)
[2021-12-12] MEDS: HYDROmorphone HCL INJ (*CRX) 1 MG/ML SYR 0.5 MG IV PUSH (05:00)
--- NOTE | 2021-12-12 05:20 | OBPPTRN ---
Patient transferred to post room # 277 via stretcher. Support person present. Oriented to unit, room, information board, rooming in, admission packet and security measures. Patient verbalizes understanding.
[2021-12-12] MEDS: DOCUSATE SODIUM 100 MG CAPSULE PO ×2 (09:10→16:49)
[2021-12-12] MEDS: MULTIVIT/MIN/PREN/FOL AC/IRON TABLET 1 TAB PO (09:10)
[2021-12-12] MEDS: KETOROLAC 30 MG/ML VIAL (*BKC) IV PUSH ×2 (09:11→16:49)
--- NOTE | 2021-12-12 09:25 | PM.OBPNVD ---
OB - PN: Subj Subjective Date/time seen: 12/12/21 09:25 In general, patient doing well. states that pain is well controlled with medication. Denies any headache, chest pain, palpitations, shortness of breath, nausea, vomiting, or right upper quadrant tenderness. Has not yet ambulated. Livingston catheter in place. No flatus yet. OB - PN: Obj Data Labs CBC & Chem 7: 12/10/21 16:46 12/11/21 16:37 Labs: Laboratory Results - last 24 hr 12/10/21 12/11/21 12/11/21 16:46 16:37 16:37 Sodium 129 L Potassium 3.7 Chloride 100 Carbon Dioxide 18 L Anion Gap 11 BUN 4 L Creatinine 0.90 Estim Creat Clear Calc 94 Estimated GFR > 60 Glucose 95 Calcium 8.4 Magnesium 6.5 H Total Bilirubin 0.6 AST 27 ALT 15 Alkaline Phosphatase 249 H Total Protein 6.0 L Albumin 3.3 L TSH Free T4 0.88 12/11/21 12/11/21 16:46 22:47 Sodium Potassium Chloride Carbon Dioxide Anion Gap BUN Creatinine Estim Creat Clear Calc Estimated GFR Glucose Calcium Magnesium 5.9 H Total Bilirubin AST ALT Alkaline Phosphatase Total Protein Albumin TSH 2.170 Free T4 OB - PN A/P Assessment and Plan (1) delivery delivered: Code(s): O82 - Encounter for delivery without indication Status: Acute Assessment and Plan: POD#0 continue routine postoperative care encourage OOB to chair and ambulation advance diet as tolerated pain management PRN (2) Preeclampsia: Code(s): O14.90 - Unspecified pre-eclampsia, unspecified trimester Status: Acute Assessment and Plan: continue magnesium sulfate x 24 hours continue to monitor vitals and symptoms strict I/O will begin Labetalol (3) Arrhythmia: Code(s): I49.9 - Cardiac arrhythmia, unspecified Status: Acute Assessment and Plan: s/p cardiology consult appreciate recommendations will f/u echo report and notes patient currently asymptomatic Time Spent With Patient Time: Total time spent is greater than 50% in coordination of care (as documented) at patient's floor/unit and/or counseling patient: Exam Const: General: cooperative, healthy appearing, comfortable and no acute distress GI: Inspection: non-distended GI Palp: Yes Soft to palpation and Yes Tenderness to palpation present (GI) (appropriately tender) Other: inc covered with bandage, bandage c/d/i Urinary Catheter: Urinary Catheter: patent and draining and urine clear Skin: General skin exam: normal color and no rashes or lesions noted Neuro: General: patient oriented x3 Extrem: Right lower extremity: edema (trace) Left lower extremity: edema (trace) Psych: Appearance: grossly normal Mental Status: mental status grossly normal
[2021-12-12] MEDS: LABETALOL HCL 100 MG TABLET 200 MG PO ×2 (10:08→21:10)
--- NOTE | 2021-12-12 11:36 | PC.NURSE ---
0922 - Mother states infants just had a bath, needed to warm up, then went to the nursery for the Latex Spooler to assess. Infants have not gone to breast since 0340 & 0440. Mom is tired and recovering from a section. Discussed with parents their desires on how they want to feed their twins. Mom states she wants to try to breastfeed but is not opposed to formula. Encouraged parents to call for assistance when infants come back to the room. Reviewed early feeding cues, frequencies, duration of feedings, feeding elimination flow sheet, and signs of adequate intake. Reviewed positioning for twins at the same time or separately. Mother will call out for RN assistance when infants return and parents see feeding cues. Mother voiced understanding of information shared. Primary RN in the room. 0940 - Nursery nurse takes baby A back to the nursery for a hearing test due to no feeding signs and Baby B fed first last feeding. Baby B to the nursery for blood sugar to be checked related to it has been 6 hours since fed, blood sugar is good and brought back quickly. B placed skin to skin with mother. Reviewed positioning/alignment, holding breast and asymmetrical latch on. Infant was unable to latch correctly. Nipple care reviewed. Mom is drowsy. A placed skin to skin with father after blood sugar was check and was fine reported RN. Meanwhile, baby B attempts in the football position. After attempting with only shallow latch for 10 min we changed to attempt with A. Nursery D.Loreta. RN takes baby B to process a hearing test. Infant A is sleepy and reluctant and shows no feeding cues. 1050 - B rooting on return from the nursery. Attempted to breastfeed in football and cross cradle position with only a few shallow latches. Mom verbalized understanding of shallow latch and how to correctly detach to care for the nipple. Discussed signs of effective , adequate output, weight and jaundice levels. Infants are 37 weeks EGA, mother has been on Magnesium Sulfate, OBL was significant, C/S medications and fluids. Mom is drowsy and wants to rest and will attempt to breastfeed later. The possibility of supplementing infants was discussed, Instructed mother to call out for RN assistance if she is unable to latch for feeding or she has discomfort with nursing. Parents verbalized understanding of calling for assistance when they see feeding cues, then place (s) skin to skin, if mother is unable to latch infant effectively or there is discomfort with . Parents voiced understanding of information shared. RN reported to primary RN. Breast pump provided due to ineffective . Instructions given on breast pump care and usage, pumping schedule, nipple care, and collection and storage of breast milk and reviewed in the mom and baby guide. Encouraged [id number], breast massage and hand expression to stimulate supply. Pumping schedule to be recorded on the feeding sheet. Assessed patient for correct flange size, placement and draw. Parents understanding of instructions. Reported to primary RN
--- NOTE | 2021-12-12 13:46 | PM.PNCARD ---
Progress Note: A&P Assessment and Plan (1) Arrhythmia: Code(s): I49.9 - Cardiac arrhythmia, unspecified Status: Acute Assessment and Plan: No significant issues post . Successful yesterday. Echocardiogram was unremarkable. Chemistry workup also unremarkable. At This point will sign off. (2) Preeclampsia: Code(s): O14.90 - Unspecified pre-eclampsia, unspecified trimester Status: Acute (3) delivery delivered: Code(s): O82 - Encounter for delivery without indication Status: Acute Assessment and Plan: Per Dr. Mccray Subjective Date/time seen: 12/12/21 13:46 Interval history: 36-year-old who was in active labor yesterday and was found to have an arrhythmia. Cardiology consultation was requested because of the arrhythmia ? Date of service 12/12/2021: Patient did undergo yesterday. There was no cardiac complications around the time of her . She denies any chest pain or shortness of breath and feels well at this point from a cardiac perspective. Review of Systems Review of Systems: All systems reviewed & are unremarkable except as noted in HPI and below Constitutional: Constitutional: Denies excessive sweating, Reports fatigue and Denies headache(s) Eyes: Eyes: Denies blurry vision ENT: Reports Normal hearing present, Denies headache(s) and Denies neck pain Cardiovascular: Cardiovascular: Denies chest pain, Denies palpitations and Reports dyspnea on exertion Respiratory: Respiratory: Reports dyspnea on exertion Gastrointestinal: Gastrointestinal: Denies abdominal pain Genitourinary: Genitourinary: Denies flank pain Musculoskeletal: Musculoskeletal: Denies neck pain Integumentary/Breasts: Skin/Breast: Denies dry skin Neurologic: Reports Normal hearing present and Denies headache(s) Psychiatric: Psychiatric: Denies anxiety Endocrine: Endocrine: Denies excessive sweating, Reports fatigue and Denies palpitations Hematologic/Lymphatic: Hematologic/Lymphatic: Denies easy bleeding Allergic/Immunologic: Allergic/Immunologic: Denies GI upset with certain foods Exam Narrative: Patient is awake alert oriented. Appears to be stated age Const: General: no acute distress and uncomfortable HENMT: General nose exam: Normal nares present Eyes: Sclera: sclerae normal Neck: Neck: supple and no JVD Chest: Other: No reproducible chest wall pain to palpation Resp: Auscultation: clear to auscultation bilaterally Cardio: Rate: regular rate Rhythm: regular rhythm Heart sounds: no murmurs GI: Other: Positive bowel sounds Skin: General skin exam: normal color Neuro: Cranial nerves: Yes Normal hearing present Cognition (Neuro): normal cognition Speech: normal speech Extrem: General: normal to inspection and no edema Psych: Mental Status: mental status grossly normal Objective Data Vital Signs Vital Signs: Vital Signs - 24 hr 12/11/21 13:47 12/11/21 13:52 12/11/21 13:57 Temperature Pulse Rate Respiratory Rate Blood Pressure Pulse Oximetry 100 99 100 12/11/21 14:01 12/11/21 14:02 12/11/21 14:07 Temperature Pulse Rate 87 Respiratory Rate Blood Pressure 134/69 Pulse Oximetry 100 96 12/11/21 14:12 12/11/21 14:16 12/11/21 14:17 Temperature Pulse Rate 48 L Respiratory Rate Blood Pressure 150/82 H Pulse Oximetry 100 100 12/11/21 14:22 12/11/21 14:27 12/11/21 14:28 Temperature Pulse Rate Respiratory Rate Blood Pressure Pulse Oximetry 98 98 98 12/11/21 14:29 12/11/21 14:31 12/11/21 14:32 Temperature 37.7 C H Pulse Rate 71 Respiratory Rate 18 Blood Pressure 153/79 H Pulse Oximetry 100 12/11/21 14:35 12/11/21 14:40 12/11/21 14:45 Temperature Pulse Rate Respiratory Rate Blood Pressure Pulse Oximetry 100 100 99 12/11/21 14:50 12/11/21 14:55 12/11/21 15:00 Temperature Pulse Rate Resp
--- NOTE | 2021-12-12 16:05 | PC.NURSE ---
1345 - Primary RN reported moms excitement of pumping minimal colostrum and with a clean finger placed it into infants mouths.
[2021-12-12] MEDS: DEXTROSE 5%/0.45% SOD CHL 1,000 ML 125 ML IV CONT (17:37)
[2021-12-13] VITALS (9 sets, daily range): BP systolic 112–149; BP diastolic 62–92; PULSE 72–90; RESP 16–18; TEMP 36.6–37.4; O2SAT 97–100
[2021-12-13] MEDS: HYDROcodone/acetaminophen (*CRX) 5-325 MG TABLET 1 TAB PO (04:49)
[2021-12-13 06:18] LABS: Basophils Percent Auto 0.4 % (0.2-1.2); Eosinophils Absolute Auto 0.1 K/mm3 (0-0.3); Eosinophils Percent Auto 0.8 % (0-4.4); Hemoglobin 8.5 g/dL (12.0-15.0); Immature Granulocyte Absolute 0.08 K/mm3 (0.00-0.031); Immature Granulocyte Percent A 0.8 % (0-0.5); Immature Platelet Fraction Pct 19.8 % (0.9-11.2); Lymphocytes Absolute Auto 1.77 K/mm3 (0.9-3.2); Lymphocytes Percent Auto 18.1 % (18.3-44.2); Mean Corpuscular Hemoglobin 30.9 pg (26-34); Mean Corpuscular Volume 90.9 fl (80-100); Mean Platelet Volume 13.8 fl (7.4-10.4); Monocytes Absolute Auto 0.7 K/mm3 (0.1-0.6); Monocytes Percent Auto 6.7 % (2.6-8.5); Neutrophils Absolute Auto 7.1 K/mm3 (1.3-6.7); Neutrophils Percent Auto 73.2 % (45.5-73.1); Platelet Count Result 136 k/mm3 (150-375); Red Blood Count 2.75 M/mm3 (4.2-5.4); White Blood Count 9.8 K/mm3 (4.5-10.0)
[2021-12-13] MEDS: DOCUSATE SODIUM 100 MG CAPSULE PO ×2 (08:07→17:09)
[2021-12-13] MEDS: LABETALOL HCL 100 MG TABLET 200 MG PO ×2 (08:07→19:16)
[2021-12-13] MEDS: HYDROcodone/acetaminophen (*CRX) 10-325 MG TABLET 1 TAB PO ×5 (08:08→23:08)
[2021-12-13] MEDS: POLYSACCHARIDE IRON COMPLEX 150 MG CAPSULE PO ×2 (08:08→17:09)
[2021-12-13] MEDS: MULTIVIT/MIN/PREN/FOL AC/IRON TABLET 1 TAB PO (08:08)
--- NOTE | 2021-12-13 08:44 | WPDANLDPN2 ---
Anes-Prog Note L&D Date/Time: 12/13/21 08:44 Comfortable throughout: section Neuraxial method: epidural Epidural/Spinal procedure site: clean & non-tender Neuro status: Neuro function grossly intact. Cardiovascular status: normal Respiratory status: normal Airway patency: baseline Mental status: baseline Post-Op hydration status: normal Vital Signs: Last Vital Signs Temp 37.3 C 12/13/21 08:00 Pulse 78 12/13/21 08:07 Resp 16 12/13/21 08:00 BP 129/86 12/13/21 08:00 Pulse Ox 98 12/13/21 08:00 Pain score (VAS): 2/10 I/O: Intake & Output 12/12/21 12/13/21 12/13/21 23:59 07:59 15:59 Intake Total 1400 1200 Output Total 1400 1350 Balance 0 -150 Post-procedural complaints: none Patient feedback: Patient satisfied with anesthetic care.
--- NOTE | 2021-12-13 08:45 | WPDANLDNPN2 ---
Anes-Prog Note L&D-Neuraxial Date/Time: 12/13/21 08:45 Neuraxial medications: epidural PF morphine Opiod-related complaints: none Patient feedback: Patient satisfied with post-operative pain management.
--- NOTE | 2021-12-13 09:19 | PM.OBPNVD ---
OB - PN: Subj Subjective Date/time seen: 12/13/21 09:19 In general, patient doing well this morning. Pain reasonably controlled with medication. Denies any headache, chest pain, shortness of breath, nausea, vomiting, or right upper quadrant tenderness. Tolerating p.o. diet. Livingston catheter recently removed. Has not yet voided. No flatus yet. Limited ambulation. Interval history: 36-year-old who was in active labor yesterday and was found to have an arrhythmia. Cardiology consultation was requested because of the arrhythmia ? Date of service 12/12/2021: Patient did undergo yesterday. There was no cardiac complications around the time of her . She denies any chest pain or shortness of breath and feels well at this point from a cardiac perspective. OB - PN: Obj Data Labs CBC & Chem 7: 12/13/21 04:42 12/11/21 16:37 Labs: Laboratory Results - last 24 hr 12/13/21 04:42 WBC 9.8 RBC 2.75 L Hgb 8.5 L D Hct 25.0 L MCV 90.9 MCH 30.9 MCHC 34.0 RDW 13.0 Plt Count 136 L MPV 13.8 H Immature Gran % (Auto) 0.8 H Neut % (Auto) 73.2 H Lymph % (Auto) 18.1 L [place] % (Auto) 6.7 Eos % (Auto) 0.8 Baso % (Auto) 0.4 Lymph # (Auto) 1.77 [place] # (Auto) 0.7 H Eos # (Auto) 0.1 Baso # (Auto) 0.0 Abs Immat Gran (auto) 0.08 H Absolute Neuts (auto) 7.1 H Absolute Nucleated RBC 0.0 Nucleated RBC % 0.0 % Immature Plt Fraction 19.8 H OB - PN A/P Assessment and Plan (1) delivery delivered: Code(s): O82 - Encounter for delivery without indication Status: Acute Assessment and Plan: POD#1 doing well continue routine postoperative care encourage ambulation and use of IS (2) Preeclampsia: Code(s): O14.90 - Unspecified pre-eclampsia, unspecified trimester Status: Acute Assessment and Plan: doing well started on Labetalol yesterday BP WNL will continue to monitor vitals and symptoms Time Spent With Patient Time: Total time spent is greater than 50% in coordination of care (as documented) at patient's floor/unit and/or counseling patient: Exam Const: General: cooperative, healthy appearing, comfortable and no acute distress GI: Inspection: non-distended GI Palp: Yes Soft to palpation and No Tenderness to palpation present (GI) Other: fundus firm below umbilicus inc covered with bandage, bandage c/d/i Extrem: Right lower extremity: edema (trace) Left lower extremity: edema (trace)
--- NOTE | 2021-12-13 09:24 | PC.NURSE ---
0830 - Parents verbalize they requested infants to rest and bottle feed in the nursery last night. i Instructed mother to call out for future feedings if assistance is needed. Reinforced pump care and usage, pumping schedule, nipple care, and collection and storage of breast milk. Encouraged [id number], breast massage and hand expression to stimulate supply. Parents verbalize understanding of instructions. They plan to call RN for assistance with latching when feeding cues are visualized.
[2021-12-13] MEDS: SIMETHICONE 80 MG TAB.CHEW PO ×4 (12:07→23:07)
--- NOTE | 2021-12-13 13:18 | PC.NURSE ---
[id number] Consulted with patient, reviewed feeding cues, frequencies, duration of feedings, feeding elimination flow sheet, and signs of adequate intake. Demonstrated stimulation techniques to wake infants for feeding assisting with infant A skin to skin , then to breast. Infant demonstrate feeding cues while vertical between moms breast skin to skin, then sleeps or offers shallow gape. Reviewed positioning/alignment, holding breast and asymmetrical latch on. was unable to latch correctly and is sleepy. Assisted with attempting for 15-20 min with two different positions. The plan is for dad to supplement baby A while mom works with baby B. RN assisted mom with B in the cross cradle position. Reviewed signs of a correct latch, effective nursing and suck swallow ratio. was unable to latch after attempting for 15-20 min. Infant will offer disorganized wide gape, shallow gape or sleep at the breast. Nipple care reviewed. Dad is prepared to supplement baby B while mom pumps her breast. Instructed mother to call out for RN assistance if she is unable to latch infant for feeding or she has discomfort with nursing. Parents demonstrate knowledge to call for assistance when feeding cues are seen for practice and feeding infants from the start of the last feed. Parents voiced understanding of information shared. Reported to primary RN.
[2021-12-13] MEDS: ACETAMINOPHEN 325 MG TABLET 650 MG PO (19:15)
[2021-12-14 05:00] VITALS: BP 140/83; PULSE 68; RESP 18; TEMP 37
[2021-12-14] MEDS: HYDROcodone/acetaminophen (*CRX) 10-325 MG TABLET 1 TAB PO (05:20)
[2021-12-14] MEDS: SIMETHICONE 80 MG TAB.CHEW PO (05:21)
[2021-12-14] MEDS: ACETAMINOPHEN 325 MG TABLET 650 MG PO (05:21)
[2021-12-14] MEDS: LANOLIN (LANSINOH) 7.5 GM CREAM 1 APPLIC TOPICAL (05:22)
[2021-12-14 07:40] VITALS: BP 130/78; PULSE 71; RESP 16; TEMP 36.3; O2SAT 99
[2021-12-14 08:00] VITALS: PULSE 71; RESP 16; O2SAT 99
[2021-12-14] MEDS: HYDROcodone/acetaminophen (*CRX) 5-325 MG TABLET 1 TAB PO (09:09)
[2021-12-14] MEDS: DOCUSATE SODIUM 100 MG CAPSULE PO (09:10)
[2021-12-14] MEDS: MULTIVIT/MIN/PREN/FOL AC/IRON TABLET 1 TAB PO (09:10)
[2021-12-14] MEDS: POLYSACCHARIDE IRON COMPLEX 150 MG CAPSULE PO (09:10)
[2021-12-14 09:11] VITALS: PULSE 71
[2021-12-14] MEDS: LABETALOL HCL 100 MG TABLET 200 MG PO (09:11)
--- NOTE | 2021-12-14 10:36 | PM.OBPNVD ---
OB - PN: Subj Subjective Date/time seen: 12/14/21 10:36 Patient doing well. Pain well controlled medication. Denies any headache, chest pain, shortness of breath, nausea, vomiting, right upper quadrant tenderness, or visual disturbances. Ambulating without difficulty. Voiding well. Passing flatus and bowel movement. Interval history: 36-year-old who was in active labor yesterday and was found to have an arrhythmia. Cardiology consultation was requested because of the arrhythmia ? Date of service 12/12/2021: Patient did undergo yesterday. There was no cardiac complications around the time of her . She denies any chest pain or shortness of breath and feels well at this point from a cardiac perspective. OB - PN: Obj Data Labs CBC & Chem 7: 12/13/21 04:42 12/11/21 16:37 OB - PN A/P Assessment and Plan (1) delivery delivered: Code(s): O82 - Encounter for delivery without indication Status: Acute Assessment and Plan: POD#2 doing well continue routine postoperative care dc home today in stable condition emergency precautions reviewed f/u in 1 week (2) Preeclampsia: Code(s): O14.90 - Unspecified pre-eclampsia, unspecified trimester Status: Acute Assessment and Plan: improved s/p magnesium sulfate x 24 hrs BP improved with medication f/u in 1 week for BP check Time Spent With Patient Time: Total time spent is greater than 50% in coordination of care (as documented) at patient's floor/unit and/or counseling patient: Exam Const: General: cooperative, healthy appearing, comfortable and no acute distress GI: Inspection: non-distended GI Palp: Yes Soft to palpation and No Tenderness to palpation present (GI) Other: inc c/d/i Neuro: General: patient oriented x3 Extrem: Right lower extremity: edema Details: 1+ Left lower extremity: edema Details: 1+ Other: no calf tenderness Psych: Appearance: grossly normal Mental Status: mental status grossly normal
--- NOTE | 2021-12-14 10:41 | PM.OBDSVD ---
DS: Admitting Diagnosis Discharge Date 12/14/21 Admitting Diagnosis IUP at 37w gestation Preeclampsia Di di twin gestation OB - DS: Summary OB Procedures : PIH Mgmt OB Procedures Intrapartum: OB Procedures: : None Peripartum Data Procedures: Procedures Operation Date: 12/12/21 01:45 Actual Procedure Side Surgeon p Section Norma Mccray MD Time Spent with Patient Time attestation: Total time spent providing and/or coordinating discharge services: DS: Data Data Completed and Pending Pending studies at discharge: Pending at discharge 12/12/21 02:15 Surgical [PTH] Routine Discharge Plan Discharge Attending physician on discharge: Norma Mccray Consulting providers: Bong Lorenzo Discharging Clinician: Norma Mccray Anticipated Discharge Date/Time: 12/14/21 10:41 Patient Disposition: Home, Self-Care Activity: as tolerated and pelvic rest Diet: regular Discharge Instructions: Call office ([phone]) to schedule the following appointments: 1. Postoperative/wound check in 2 weeks. 2. visit in 4-6 weeks. I have sent a prescription for a stronger pain medication, Julian, to your pharmacy. You may take this as prescribed for pain. No driving for at least two weeks. You also may not drive while taking narcotics. Pain medication may make you constipated. It may be helpful to take an [id number] stool softener, such as Colace and/or Senokot, along with the pain medication to help lessen constipation. I have also sent a prescription to your pharmacy for a blood pressure medication, Labetalol, to your pharmacy. Please take as directed. Call office or go to ED for pain not controlled with medication, headache, chest pain, shortness of breath, fever, chills, persistent nausea or vomiting, severe abdominal pain, heavy vaginal bleeding >2 pads/hour, foul vaginal discharge or odor, any redness near incision, severe pain, pus or drainage from incision site, or problems with your breasts. Patient Instructions: Antibiotic Form Stand Alone Forms: General Discharge Information Follow-up/Referrals: Norma Mccray MD [Physician] - Discharge Medications: New hydrocodone-acetaminophen 5-325 mg Tablet 1 - 2 tablet PO Q4-6H PRN (Reason: Moderate Pain (4-6)) Qty: 30 RF: 0 labetalol 200 mg tablet 200 mg PO Q12H Qty: 60 RF: 0 Continued One A Day Women's DHA 28 mg iron- 800 mcg combo pack PO RF: 0 Discontinued aspirin [Adult Low Dose Aspirin] 81 mg tablet,delayed release (DR/EC) 81 mg PO DAILY RF: 0 sertraline 50 mg Tablet 50 mg PO DAILY RF: 0 Date of admission: 12/10/21 14:20 Primary Care Provider: Harjeet,Medina Quintero Admitting Provider: Norma Mccray Attending physician on admission: Norma Mccray Condition: Stable
--- NOTE | 2021-12-14 11:01 | PC.NURSE ---
Patient was given the opportunity to view the discharge video Mother & Baby Care, The First Two Weeks and to ask questions. Patient declined viewing the video and has been given the mother/baby guide for home reference. Parents stated they will review video at home.
--- NOTE | 2021-12-14 15:15 | PC.NURSE ---
0800 - Mother verbalizes she is able to latch independently. She denies any nipple discomfort, however the nipples are tender. Parents are waking infants to feed if needed with exception to this last parts cleaner stretch. Reviewed what an effective latch looks and feels like. Mom states she knows it isn't the best yet but will continue to work with infants. Both infants are showing more efforts than day 1 & 2. Infant B is more assertive at this time. Infants has had 8-10 feedings in the past 24 hours, and they are currently meeting outcomes for weight, output, jaundice and feeding frequencies. Reviewed feeding infants 8-10 times in 24 hours, watch for feeding cues, waking infants, stimulate with skin to skin encouraged. Parents state they are confident to continue attempting to effective latch/pumping/feeding at home with infants. Mom is feeding 10-15 cc of human milk to each of the infants, then dad is supplementing with formula. Reviewed transition to breast milk, signs of adequate intake, and engorgement/relief. Instructed to call ICP if intake/output less than required. Reviewed community resources and out patient services in the Mom/Baby guide. Parents have no further questions at this time. Reported to primary RN.
[2021-12-15 10:08] VITALS: BP 162/82; PULSE 64; RESP 20; TEMP 36.8; O2SAT 100
== END 2021-12-14 13:38 | disposition home or self-care (01) | DRG 786 ==
LOC: ANHLDR 12-12 02:31 → ANHOB2 12-12 05:22
PROVIDERS: Admitting Provider Student in an Organized Health Care Education/Training Program; PCP Internal Medicine; Visit Provider Student in an Organized Health Care Education/Training Program
PROC: 10D00Z1 Extraction of Products of Conception, Low, Open Approach (ICD-10-PCS; CPT 59514; principal; 2021-12-12 01:45)
DX: O75.2 Pyrexia during labor, not elsewhere classified (principal); O99.42 Diseases of the circulatory system complicating childbirth; O62.1 Secondary uterine inertia; O14.94 Unspecified pre-eclampsia, complicating childbirth; O76 Abnormality in fetal heart rate and rhythm complicating labor and delivery; O62.0 Primary inadequate contractions; I49.9 Cardiac arrhythmia, unspecified; O14.04 Mild to moderate pre-eclampsia, complicating childbirth; O69.81X2 Labor and delivery complicated by cord around neck, without compression, fetus 2; O30.043 Twin pregnancy, dichorionic/diamniotic, third trimester; Z3A.37 37 weeks gestation of pregnancy; Z37.2 Twins, both liveborn
CPT/HCPCS: 36415; 80053; 83735; 84439; 84443; 84550; 85025; 85055; 86592; 86850; 86900; 86901; 88307; 93005; 93306; A9270; J0131; J1170; J1885; J2175; J2270; J2274; J2370; J2405; J2590; J2795; J3475; J7120